=== PATIENT | male | born 1950 | race Native Hawaiian/Other Pacific Islander ===

== ENCOUNTER → 2019-02-20 12:12 | Outpatient (CLI) | payer MEDICARE, OTHER, SELFPAY ==
--- NOTE | 2019-02-20 12:14 | DI.RAD.S_ITS ---
PROCEDURE: XR HIP W PEL IF DONE LT 2V INDICATIONS: LEFT HIP PAIN TECHNIQUE: 2 views of the hip were acquired. COMPARISON: None. FINDINGS: Bones: Mild to moderate left hip joint osteoarthritic changes are seen. No fractures or dislocations. No evidence of avascular necrosis of femoral head. No suspicious bony lesions. The visualized pelvic ring appears intact. Soft tissues: No suspicious soft tissue calcifications or masses. Curvilinear foreign body is noted in soft tissue over lateral aspect of left ilium suggest clinical correlation. IMPRESSION: #1. Left hip joint osteoarthritis. No fracture or dislocation. No evidence of a avascular necrosis. #2. Foreign body seen in left lateral hip soft tissue as above, suggest clinical correlation. Dictated by: Alvaro Vincent M.D. on 02/20/2019 at 20:20 Approved by: Alvaro Vincent M.D. on 02/20/2019 at 20:21
== END ==
PROVIDERS: PCP Family Medicine; Visit Provider Family Medicine
DX: M25.552 Pain in left hip (principal); M16.12 Unilateral primary osteoarthritis, left hip; M79.5 Residual foreign body in soft tissue
CPT/HCPCS: 73501

== ENCOUNTER → 2022-11-01 09:00 | Outpatient (CLI) | payer OTHER, SELFPAY ==
--- NOTE | 2022-11-01 | DI.RAD.S_ITS ---
PROCEDURE: XR LUMBAR SPINE 2-3V INDICATIONS: BACK PAIN TECHNIQUE: 3 views of the lumbar spine were acquired. COMPARISON: [facility], , L-SPINE 2-3 VIEWS, 11/05/2014, 12:33. FINDINGS: Bones: 5 [id number] vertebrae are present. Straightening the normal lumbar lordosis. Redemonstration of grade 1 anterolisthesis of L4 on L5. There is multilevel facet arthropathy, worse at L4-5 and L5-S1. Mild multilevel disc height loss with degenerative endplate changes and spurring is present. Decreased osseous mineralization. No vertebral body compression fractures. No suspicious bony lesions. Soft tissues: Overlying bowel gas pattern is normal. No suspicious soft tissue calcifications. IMPRESSION: Redemonstration of degenerative changes of the lumbar spine with grade 1 anterolisthesis of L4 on L5. Dictated by: Akhil Frias M.D. on 11/01/2022 at 10:05 Approved by: Akhil Frias M.D. on 11/01/2022 at 10:06
--- NOTE | 2022-11-01 | DI.RAD.S_ITS ---
PROCEDURE: XR HIP W PEL IF DONE RT 2V INDICATIONS: right hip pain TECHNIQUE: AP pelvis with lateral view(s) of the right hip(s). COMPARISON: [facility], , XR HIP W PEL IF DONE LT 2V, 02/20/2019, 12:12. FINDINGS: Bones: No fractures or dislocations. Pelvic ring appears intact. No suspicious bony lesions. [id number] osteoarthritic changes of the bilateral hips with joint space narrowing and marginal spurring. Soft tissues: The visualized bowel gas pattern is normal. No suspicious soft tissue calcifications. IMPRESSION: No acute osseous abnormalities. Mild to moderate osteoarthritic changes of the bilateral hips. Dictated by: Akhil Frias M.D. on 11/01/2022 at 10:03 Approved by: Akhil Frias M.D. on 11/01/2022 at 10:04
== END ==
PROVIDERS: PCP Family Medicine; Referring Provider Family Medicine; Visit Provider Family Medicine
DX: M47.816 Spondylosis without myelopathy or radiculopathy, lumbar region (principal); M47.817 Spondylosis without myelopathy or radiculopathy, lumbosacral region; M43.16 Spondylolisthesis, lumbar region; M54.50 Low back pain, unspecified
CPT/HCPCS: 72100; 73502

== ENCOUNTER → 2025-02-18 10:54 | Outpatient (CLI) | payer MEDICARE, SELFPAY ==
--- NOTE | 2025-02-18 11:02 | DI.RAD.S_ITS ---
PROCEDURE: XR LUMBAR SPINE 2-3V INDICATIONS: RADICULOPATHY TECHNIQUE: 3 views of the lumbar spine were acquired. COMPARISON: [facility], CR, XR LUMBAR SPINE 2-3V, 11/01/2022, 9:13. FINDINGS: Bones: 5 [id number] vertebrae are present. There is stable bony alignment with mild grade 1 anterolisthesis of L4 on L5. Moderate lower lumbar facet arthropathy. No acute vertebral body compression fractures. Redemonstration of multilevel lumbar spondylitic changes not significantly changed. No suspicious bony lesions. Soft tissues: Overlying bowel gas pattern is normal. No suspicious soft tissue calcifications. IMPRESSION: Stable appearance of multilevel lumbar spondylitic changes with unchanged appearance of grade 1 anterolisthesis of L4 on L5. No acute osseous abnormalities. Dictated by: Anderson Rubio M.D. on 02/18/2025 at 21:32 Approved by: Anderson Rubio M.D. on 02/18/2025 at 21:34
--- NOTE | 2025-02-18 11:02 | DI.RAD.S_ITS ---
PROCEDURE: XR FEMUR RT MIN 2V INDICATIONS: RADICULOPATHY TECHNIQUE: AP and lateral views of the femur were acquired. COMPARISON: None. FINDINGS: Bones: No fractures or dislocations. No suspicious bony lesions. Degenerative changes of the right hip. Tricompartmental osteoarthrosis of the right knee. Curvilinear ossification along the medial femoral condyle possibly sequela of remote injury to the medial collateral ligament. Soft tissues: No suspicious soft tissue calcifications or masses. No substantial joint effusion seen. IMPRESSION: Right femur without acute osseous abnormalities. Degenerative changes of the right hip and right knee. If there are persistent symptoms or clinical suspicion for pathology, then repeat radiographs or advanced imaging (CT or MRI) may be considered for further evaluation. Dictated by: Anderson Rubio M.D. on 02/18/2025 at 21:30 Approved by: Anderson Rubio M.D. on 02/18/2025 at 21:32
== END ==
PROVIDERS: PCP Family Medicine; Referring Provider Family Medicine; Visit Provider Family Medicine
DX: M54.12 Radiculopathy, cervical region (principal); M1A.09X0 Idiopathic chronic gout, multiple sites, without tophus (tophi); M17.11 Unilateral primary osteoarthritis, right knee; M43.16 Spondylolisthesis, lumbar region; M47.816 Spondylosis without myelopathy or radiculopathy, lumbar region
CPT/HCPCS: 72100; 73552